=== PATIENT | female | born 2000 | race Asian ===

== ENCOUNTER 2024-02-28 01:13 | Emergency (ER) | payer BC, MEDICAID ==
[~2024-02-28] VITALS: Ht 167.6 cm; Wt 65.4 kg
[2024-02-28 01:46] LABS: Urine Bacteria None Seen /hpf (None Seen)
[2024-02-28 02:21] LABS: Urine Blood 2+ /uL (Negative); Urine Clarity Turbid (Clear); Urine Color Colorless (Yellow); Urine Protein, UAD 2+ (Negative); Urine Specific Gravity 1.008 (1.001-1.035); Urine Urobilinogen Normal (Negative); Urine WBC 423 /hpf (0 - 5); Urine WBC Clumps PRESENT /hpf (None Seen); Urine pH 6.5 (5.0-9.0)
[2024-02-28 03:38] VITALS: BP 95/56; PULSE 92; RESP 16; TEMP 98.8; O2SAT 97
[2024-02-28] MEDS ORDERED: CYCL30CA PO (03:40)
[2024-02-28] MEDS ORDERED: NITR-87 PO (03:40)
[2024-02-28] MEDS: PHENAZOPYRIDINE HCL 100 MG TAB PO ONE (03:48)
[2024-02-28] MEDS: NITROFURANTOIN 100 mg CAP PO ONE (03:48)
[2024-02-28] MEDS ORDERED: PHEN95TA17 OR (03:53)
== END 2024-02-28 03:57 | disposition home or self-care (01) ==
LOC: ER 01:13
DX: N39.0 Urinary tract infection, site not specified (principal)
CPT/HCPCS: 81001